=== PATIENT | male | born 1995 | race Caucasian/White ===

== ENCOUNTER 2018-07-13 00:20 | Emergency (ER) | payer OTHER ==
[2018-07-13 00:26] VITALS: BP 142/80
--- NOTE | 2018-07-13 00:29 | EDPHY ---
H & P Stated Complaint: right index finger laceration Time Seen by Provider: 07/13/18 00:29 HPI/ROS: HPI CHIEF COMPLAINT: Distal aspect right index finger laceration. HISTORY OF PRESENT ILLNESS: Very pleasant 23-year-old male otherwise healthy no significant medical history tetanus shot is up-to-date. Patient was chopping onions earlier today and sustained an avulsion laceration to the distal aspect of the right index finger. Patient went to urgent care and had this dressed appropriately. However he went to take the dressing off this evening and removed whatever hemostatic agent was placed on the avulsion laceration. He is unsure exactly what was but says it was some kind of gel. Patient now presents emergency room with this area bleeding again.. Past Medical History: Denies medical history Past Surgical History: Denies surgical history Social History: Denies drugs alcohol tobacco. Family History: Noncontributory ROS REVIEW OF SYSTEMS: 10 Systems were reviewed and negative with the exception of the elements mentioned in the history of present illness. Exam Constitutional triage nursing summary reviewed, vital signs reviewed, awake/ alert. Eyes normal conjunctivae and sclera, EOMI, PERRLA. HENT normal inspection, atraumatic, moist mucus membranes, no epistaxis, neck supple/ no meningismus, no raccoon eyes. Respiratory clear to auscultation bilaterally, normal breath sounds, no respiratory distress, no wheezing. Cardiovascular rate normal, regular rhythm, no murmur, no edema, distal pulses normal. Gastrointestinal soft, non-tender, no rebound, no guarding, normal bowel sounds, no distension, no pulsatile mass. Genitourinary no CVA tenderness. Musculoskeletal right hand: Index finger distal aspect lateral side is an avulsion laceration with capillary bleed present. no midline vertebral tenderness, full range of motion, no calf swelling, no tenderness of extremities, no meningismus, good pulses, neurovascularly intact. Skin pink, warm, & dry, no rash, skin atraumatic. Neurologic awake, alert and oriented x 3, AAOx3, moves all 4 extremities equally, motor intact, sensory intact, CN II-XII intact, normal cerebellar, normal vision, normal speech. Psychiatric normal mood/affect. Heme/Lymph/Immune no lymphadenopathy. Differential Diagnosis: Includes but is not limited to in a particular order avulsion laceration, soft tissue injury, nail bed injury. Medical Decision Making: The patient be re-dressed, Surgicel be applied. Patient be splinted appropriately. Re-evaluation: Patient need to follow up with Hand surgery. He understands. Keep the wound clean, dry and protected. Surgiseal was applied. Dressing applied. No sutures needed. Watch for infection. Return to er if worse. Source: Patient - Personal History Current Tetanus/Diphtheria Vaccine: Yes Current Tetanus Diphtheria and Acellular Pertussis (TDAP): Yes - Medical/Surgical History Hx Asthma: Yes Hx Chronic Respiratory Disease: No Hx Diabetes: No Hx Cardiac Disease: No Hx Renal Disease: No Hx Cirrhosis: No Hx Alcoholism: No Hx HIV/AIDS: No Hx Splenectomy or Spleen Trauma: No Other PMH: asthma - Social History Smoking Status: Never smoked Constitutional: Initial Vital Signs Temperature (C) 37.0 C 07/13/18 00:22 Heart Rate 69 07/13/18 00:22 Respiratory Rate 22 H 07/13/18 00:22 Blood Pressure 142/80 H 07/13/18 00:22 O2 Sat (%) 94 07/13/18 00:22 O2 Delivery Mode Room Air Allergies/Adverse Reactions: acetaminophen [From Percocet] Allergy (Verified 07/13/18 00:21) oxycodone [From Percocet] Allergy (Verified 07/13/18 00:21) Home Medications: Medication Instructions Recorded NK [No Known Home Meds] 07/13/18 Departure - Departure Disposition: Home, Routine, Self-Care Clinical Impression: Laceration Condition: Good Instructions: Finger Laceration (ED) Additional Instructions: 1. Watch for signs of infection 2. Keep clean and protected. 3. The dressing will eventually fall off and dissolve. Referrals: NONE *PRIMARY CARE P,. [Primary Care Provider] - As per Instructions Deangelo Valencia MD [Medical Doctor] - As per Instructions
== END 2018-07-13 01:07 | disposition home or self-care (01) ==
DX: S61.210A Laceration without foreign body of right index finger without damage to nail, initial encounter (principal); W26.0XXA Contact with knife, initial encounter; Y93.G3 Activity, cooking and baking
CPT/HCPCS: L3925